=== PATIENT | male | born 1945 | race Caucasian/White ===

== ENCOUNTER 2022-03-02 09:24 | Outpatient (CLI) | payer MEDICARE, SELFPAY | END 2022-03-02 09:25 | disposition home or self-care (01) | LOC: ANHAUDIO 09:25 | PROVIDERS: PCP Internal Medicine; Referring Provider Internal Medicine; Visit Provider Internal Medicine | DX: H93.19 Tinnitus, unspecified ear (principal); H90.3 Sensorineural hearing loss, bilateral | CPT/HCPCS: 92557; 92567 ==

== ENCOUNTER 2023-10-29 11:39 | Emergency (ER) | payer MEDICARE, SELFPAY ==
[2023-10-29 11:55] VITALS: BP 135/62; PULSE 69; RESP 16; TEMP 36.2; O2SAT 99
--- NOTE | 2023-10-29 12:07 | ECG_ITS ---
SEE SCANNED COPY FOR CONFIRMED REPORT MTDD
[2023-10-29 12:28] LABS: Basophils Absolute Auto 0.1 K/mm3 (0.0-0.1); Basophils Percent Auto 0.8 % (0.2-1.2); Eosinophils Absolute Auto 0.1 K/mm3 (0-0.3); Eosinophils Percent Auto 1.1 % (0-4.4); Hematocrit 44.3 % (42.0-52.0); Hemoglobin 15.5 g/dL (14.0-18.0); Immature Granulocyte Absolute 0.03 K/mm3 (0.00-0.031); Immature Granulocyte Percent A 0.4 % (0-0.5); Lymphocytes Absolute Auto 0.65 K/mm3 (0.9-3.2); Lymphocytes Percent Auto 8.2 % (18.3-44.2); Mean Corpuscular Hemoglobin 33.8 pg (26-34); Mean Corpuscular Volume 96.5 fl (80-100); Mean Platelet Volume 10.5 fl (7.4-10.4); Monocytes Absolute Auto 0.5 K/mm3 (0.1-0.6); Monocytes Percent Auto 5.9 % (2.6-8.5); Neutrophils Absolute Auto 6.6 K/mm3 (1.3-6.7); Neutrophils Percent Auto 83.6 % (45.5-73.1); Platelet Count Result 190 k/mm3 (150-375); Red Blood Count 4.59 M/mm3 (4.6-6.20); Red Cell Distribution Width 12.3 % (11.5-14.5); White Blood Count 7.9 K/mm3 (4.5-10.0)
[2023-10-29] MEDS: ASPIRIN 81 MG CHEWABLE TABLET 324 MG PO (12:32)
[2023-10-29 12:38] LABS: Alanine Aminotransferase 33 U/L (6-50); Albumin Level 4.2 g/dL (3.5-5.1); Alkaline Phosphatase 81 U/L (38-126); Anion Gap 5 mmol/L (4-12); Aspartate Amino Transferase 35 U/L (17-59); Blood Urea Nitrogen 11 mg/dL (9-20); Calcium 9.5 mg/dL (8.4-10.2); Carbon Dioxide 28 mmol/L (22-30); Chloride 100 mmol/L (98-107); Estimated CRCL calculation 75 ml/min; Estimated Glomerular Filt Rate > 60; Glucose 125 mg/dL (65-110); Magnesium 2.2 mg/dL (1.6-2.3); Potassium 3.6 mmol/L (3.4-5.0); Sodium 133 mmol/L (137-145)
[2023-10-29 12:49] LABS: Troponin I < 0.012 ng/mL (0.000-0.034)
[2023-10-29 13:04] LABS: Influenza A QL RT-PCR Negative (Negative); Influenza B QL RT-PCR Negative (Negative); RSV RNA, RT-PCR Negative (Negative); SARS-CoV-2 RNA PCR Negative (Negative)
[2023-10-29 13:21] VITALS: BP 136/66; PULSE 66; RESP 18; O2SAT 100
--- NOTE | 2023-10-29 14:10 | ED.ARRPALP ---
HPI - Arrhythmia/Palpitations General Chief Complaint: Arrhythmia/Palpitations Stated Complaint: dizzy, racing heart, fever Time Seen by Provider: 10/29/23 12:06 History of Present Illness HPI narrative: Patient presents after he was moving some boxes earlier today and suddenly felt like his heart was racing, up to 120, he became quite diaphoretic and felt like he had to sit down and felt like he was going to pass out, some mild nausea and shortness of breath, he tried this not to come into the emergency room. No that he is here he feels much better and symptoms have resolved. No chest pain. No focal numbness or weakness. No radiation of pain. Related Data Home Medications Medication Instructions Recorded Confirmed louis (Zingiber officinalis) 550 550 mg PO DAILY 03/25/21 06/13/23 mg capsule lamotrigine 200 mg tablet 200 mg PO DAILY 03/25/21 06/13/23 mecobalamin (vitamin B12) 5,000 5,000 mcg PO DAILY 03/25/21 06/13/23 mcg lozenge omega-3 fatty acids 1,000 mg 1,000 mg PO DAILY 03/25/21 06/13/23 capsule (Fish Oil Concentrate) sennosides 8.6 mg tablet 8.6 mg PO DAILY 03/25/21 06/13/23 turmeric 100 mg-louis 150 cap PO 03/25/21 06/13/23 mg-olive 50 mg-oreg 150 mg-capryl capsule acetylcarnitine HCl 250 mg capsule 500 mg PO QHS 02/07/22 06/13/23 diphenhydramine 25 1 tablet PO QHS PRN 02/07/22 06/13/23 mg-acetaminophen 500 mg tablet (Acetaminophen PM) multivitamin (Daily Multi-Vitamin 1 tablet PO DAILY 02/07/22 06/13/23 tablet) losartan 50 mg tablet 50 mg PO DAILY 04/04/22 06/13/23 cholecalciferol (vitamin D3) 25 25 mcg PO DAILY 12/20/22 06/13/23 mcg (1,000 unit) capsule semaglutide 0.25 mg or 0.5 mg (2 0.25 mg subcut WEEKLY 06/13/23 06/13/23 mg/3 mL) subcutaneous pen injector (Agilence) Allergies Allergy/AdvReac Type Severity Reaction Status Date / Time No Known Allergies Allergy Mild Verified 10/29/23 11:43 Review of Systems Review of Systems: All systems reviewed & are unremarkable except as noted in HPI and below PMFSH Past Medical History Medical History (Updated 10/29/23 @ 14:08 by Petty Falcon MD) Arthritis Bipolar 2 disorder BPH (benign prostatic hyperplasia) Cognitive changes Colon polyp Coronary arteriosclerosis Erectile dysfunction HLD (hyperlipidemia) HTN (hypertension) Hyperlipidemia with target low density lipoprotein (LDL) cholesterol less than 130 mg/dL Macrocytosis without anemia Obesity CHARISSE (obstructive sleep apnea) Osteoarthritis Prostatism Sleep apnea Sleeping difficulties Spinal stenosis Spondylitis Surgical History Surgical History H/O eye surgery Family History Family History Sibling Acute alcohol abuse Father Diabetes mellitus Hypertension Heart disease Mother Diabetes mellitus Hypertension Heart disease Depression Social History Social History Social History: Quit tobacco 35+ years ago, 22 pack year Smoking status: Former smoker Alcohol intake: current Drinks per week: 5 Alcohol use details: Pt reports that he drinks bourbon Lack of Transportation: No Lack of Food: Never True Current Housing: I Have Housing Concerned About Future Housing: No Difficulty Paying Gas/Electric Bills: No Difficulty Paying for Meds: No Currently Unemployed: No Education: Master's Degree or Higher Difficulty w/ Childcare or Family Care: No Exam Narrative: EXAMINATION OF ORGAN SYSTEMS/BODY AREAS: Constitutional: Vital signs per nursing GENERAL:[No acute distress, non-toxic appearing.] HEAD: Normal with no signs of head trauma. EYES: EOMI, conjunctiva normal ENT: Hearing grossly intact LUNGS: Nonlabored breathing. HEART: [Regular rate and rhythm] , normal radial pulses bilaterally and DP pulses bilaterally ABD: [Soft], [nontender to palpation] EXT: N
== END 2023-10-29 14:18 | disposition left against medical advice (07) ==
PROVIDERS: Emergency Provider Emergency Medicine; PCP Internal Medicine
DX: R06.02 Shortness of breath (principal); R61 Generalized hyperhidrosis; Z20.822 Contact with and (suspected) exposure to COVID-19; I10 Essential (primary) hypertension; I25.10 Atherosclerotic heart disease of native coronary artery without angina pectoris; E78.5 Hyperlipidemia, unspecified; N40.0 Benign prostatic hyperplasia without lower urinary tract symptoms; G47.33 Obstructive sleep apnea (adult) (pediatric); M19.90 Unspecified osteoarthritis, unspecified site; Z86.010 Personal history of colon polyps; Z87.891 Personal history of nicotine dependence; Z79.85 Long-term (current) use of injectable non-insulin antidiabetic drugs
CPT/HCPCS: 36415; 80053; 83735; 84484; 85025; 87637; 93005; 99284; A9270